=== PATIENT | male | born 1960 ===

== ENCOUNTER 2018-11-04 23:43 | Emergency (ER) | payer OTHER ==
[2018-11-05 00:04] VITALS: RESP 18
[2018-11-05] MEDS ORDERED: Alum-Mag Hydrox-Simethicone Susp (30 mL) PO STA (00:29)
--- NOTE | 2018-11-05 00:29 | C.PDOC ---
History Of Present Illness 58 year old male presents to the ED c/o epigastric abdominal pain described as burning after eating pizza today. Patient reports he took Zantac and then 20 minutes later took kodi-seltzer with no relief. Patient denies fever, chills, headache, CP, SOB, palpitations, nausea, vomiting, diarrhea, rashes. Time Seen by Provider: 11/05/18 00:05 Chief Complaint (Nursing): Abdominal Pain History Per: Patient History/Exam Limitations: no limitations Onset/Duration Of Symptoms: Hrs Current Symptoms Are (Timing): Still Present Context: Food Location Of Pain/Discomfort: Epigastric Radiation Of Pain To:: None Quality Of Discomfort: Burning Associated Symptoms: denies: Nausea, Vomiting, Diarrhea, Urinary Symptoms Recent travel outside of the [place]: No Additional History Per: Patient Past Medical History Reviewed: Historical Data, Nursing Documentation, Vital Signs Vital Signs: Last Vital Signs Temp 98.4 F 11/05/18 00:00 Pulse 78 11/05/18 00:00 Resp 18 11/05/18 00:00 BP 100/62 11/05/18 00:00 Pulse Ox 98 11/05/18 00:00 - Medical History PMH: Bipolar Disorder, Depression, HTN Surgical History: Appendectomy Family History: States: No Known Family Hx - Social History Hx Alcohol Use: Yes Hx Substance Use: Yes (COCAINE) - Immunization History Hx Tetanus Toxoid Vaccination: No Hx Influenza Vaccination: No Hx Pneumococcal Vaccination: No Review Of Systems Constitutional: Negative for: Fever, Chills Cardiovascular: Negative for: Chest Pain, Palpitations Respiratory: Negative for: Shortness of Breath Gastrointestinal: Positive for: Abdominal Pain. Negative for: Nausea, Vomiting, Diarrhea Genitourinary: Negative for: Dysuria Skin: Negative for: Rash Neurological: Negative for: Weakness, Numbness, Headache Physical Exam - Physical Exam Appears: Well, Non-toxic, No Acute Distress, Other (bizarre affect) Skin: Normal Color, Warm, Dry Head: Normacephalic Eye(s): bilateral: Normal Inspection Oral Mucosa: Moist Neck: Supple Cardiovascular: Rhythm Regular Respiratory: Normal Breath Sounds, No Rales, No Rhonchi, No Wheezing Gastrointestinal/Abdominal: Bowel Sounds, Soft, Tenderness (epigastric mild TTP, (-) Zhu's), No Guarding, No Rebound Back: Normal Inspection, No CVA Tenderness Extremity: No Pedal Edema, No Calf Tenderness Neurological/Psych: Oriented x3 Gait: Steady ED Course And Treatment ECG: Interpreted By Me, Viewed By Me (sinus bradycardia 58bpm, normal axis, early repolarization V3-V6, no acute ST/T wave changes - unchanged EKG from 06/12/18) ECG Interpretation: No Acute Changes O2 Sat by Pulse Oximetry: 98 (ON RA) Pulse Ox Interpretation: Normal Progress Note: EKG ordered and reviewed. Patient given PO Maalox + Viscous Lidocaine. Reevaluation Time: 01:45 Reassessment Condition: Improved (Patient resting comfortably, pain has resolved and he is feeling better. Rx for Maalox plus given. Patient instructed to follow up with PMD/clinic in 1-2 days, and understands he should return to ED if symptoms worsen.) Disposition Counseled Patient/Family Regarding: Studies Performed, Diagnosis, Need For Followup, Rx Given - Disposition Referrals: [facility] [Outside] Disposition: HOME/ ROUTINE Disposition Time: 01:45 Condition: STABLE Additional Instructions: FOLLOW UP WITH YOUR DOCTOR OR CLINIC IN 1-2 DAYS USE MEDICATION DIRECTED RETURN TO ED IF SYMPTOMS WORSEN Prescriptions: Aluminum Hydroxide/Magnesium [Maalox Plus 30 ml] 30 ml PO Q8 PRN #1 bottle PRN Reason: epigastric pain Instructions: Dyspepsia (DC) Forms: [employer] (Italian) Print Language: BULGARIAN - Clinical Impression Clinical Impression: Dyspepsia - Scribe Statement The provider has reviewed the documentation as recorded by the Scribe Terrance Atwood All medical record entries made by the Scribe were at my direction and personally dictated by me. I have reviewed the chart and agree that the record accurately reflects my personal performance of the history, physical exam, medical decision making, and the department course for this patient. I have also personally directed, reviewed, and agree with the discharge instructions and disposition.
[2018-11-05] MEDS ORDERED: Alum-Mag Hydrox-Simethicone Susp (30 mL) ONE (01:02)
[2018-11-05 01:54] VITALS: BP 125/75; PULSE 60; TEMP 98.9
--- NOTE | 2018-11-06 12:18 | CARD ---
APPROVED REPORT Date of service: 11/05/2018 EKG Measurement Heart [id number] <Conclusion> Sinus bradycardia ST elevation, probably due to early repolarization Borderline ECG
[2018-11-08 08:07] VITALS: O2SAT 98
== END 2018-11-05 01:57 | disposition home or self-care (01) ==
LOC: C.ER 23:43
DX: R10.13 Epigastric pain (principal); I10 Essential (primary) hypertension

== ENCOUNTER 2018-11-15 22:31 | Emergency (ER) | payer OTHER ==
[2018-11-15 22:53] VITALS: BP 112/75; PULSE 80; TEMP 98.4; O2SAT 99
--- NOTE | 2018-11-15 23:07 | C.PDOC ---
History Of Present Illness 58 year old male was using a surface grinder yesterday and sustained laceration to right index finger. He came in today because when he bends his finger he feels like the laceration is opening and is requesting to have it sutured. Denies any other complaints. Tetanus is up to date. Time Seen by Provider: 11/15/18 22:58 Chief Complaint (Nursing): Abnormal Skin Integrity History Per: Patient History/Exam Limitations: no limitations Onset/Duration Of Symptoms: Other (Yesterday) Current Symptoms Are (Timing): Still Present Location Of Injury: Right: Hand Recent travel outside of the [place]: No Past Medical History Reviewed: Historical Data, Nursing Documentation, Vital Signs Vital Signs: Last Vital Signs Temp 98.4 F 11/15/18 22:47 Pulse 80 11/15/18 22:47 Resp 14 11/15/18 22:47 BP 112/75 11/15/18 22:47 Pulse Ox 99 11/15/18 22:47 Primary Care Provider: FAMILY PROVIDER,NO - Medical History PMH: Bipolar Disorder, Depression, HTN Denies: Chronic Kidney Disease Surgical History: Appendectomy Family History: States: Unknown Family Hx - Social History Hx Alcohol Use: Yes Hx Substance Use: Yes (COCAINE) - Immunization History Hx Tetanus Toxoid Vaccination: No Hx Influenza Vaccination: No Hx Pneumococcal Vaccination: No Review Of Systems Skin: Positive for: Other (Laceration) Neurological: Negative for: Weakness, Numbness Physical Exam - Physical Exam Appears: Non-toxic, No Acute Distress Skin: Warm Head: Atraumatic, Normacephalic Extremity: Capillary Refill (<2 seconds), Other (1cm vertical laceration over pip of right index with surrounding erythema) Pulses: Left Radial: Normal, Right Radial: Normal Neurological/Psych: Oriented x3, Normal Speech ED Course And Treatment O2 Sat by Pulse Oximetry: 99 (Room air) Pulse Ox Interpretation: Normal Medical Decision Making Medical Decision Making: Explained to patient that it is too late for suture repair and laceration just needs to heal on its own, will start on keflex prophylactically and dc to follow up with primary. I informed this patient that his wound is outside of the window to suture. the laceration is dry without drainage. 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 - Scribe Statement The provider has reviewed the documentation as recorded by the Scribe Danny An All medical record entries made by the Scribe were at my direction and personally dictated by me. I have reviewed the chart and agree that the record accurately reflects my personal performance of the history, physical exam, medical decision making, and the department course for this patient. I have also personally directed, reviewed, and agree with the discharge instructions and disposition.
[2018-11-15] MEDS ORDERED: Bacitracin 500 Units/gm Oint Foilpak UD ONE (23:11)
[2018-11-15 23:27] VITALS: RESP 20
== END 2018-11-15 23:26 | disposition home or self-care (01) ==
LOC: C.ER 22:31
DX: S61.210A Laceration without foreign body of right index finger without damage to nail, initial encounter (principal); X58.XXXA Exposure to other specified factors, initial encounter